=== PATIENT | male | born 1980 | race Caucasian/White ===

== ENCOUNTER 2022-12-07 20:44 | Emergency (ER) | payer BC, OTHER ==
[2022-12-07] MEDS ORDERED: Ketorolac 60 MG/2 ML SDV IM ONE (21:23)
[2022-12-07 22:18] VITALS: BP 118/72; PULSE 78
== END 2022-12-07 22:17 | disposition home or self-care (01) ==
LOC: MW.ED 20:44
DX: L03.115 Cellulitis of right lower limb (principal)
CPT/HCPCS: 73610; 96374; 99283; J1885